=== PATIENT | female | born 1960 | race Caucasian/White ===

== ENCOUNTER → 2018-11-22 | Outpatient (CLI) | payer OTHER ==
--- NOTE | 2018-11-22 12:15 | RAD ---
EXAM: Pelvic sonogram. HISTORY: Postmenopausal bleeding. TECHNIQUE: Transabdominal and transvaginal sonographic imaging of the pelvis performed. COMPARISON: None. FINDINGS: The uterus measures 9.5 x 4.9 x 4.8 cm. The endometrial stripe measures 17 mm in thickness. The ovaries are not seen. There is no adnexal mass or free fluid. There are multiple nabothian cysts within the cervix. IMPRESSION: 1. Nonvisualization of the ovaries. 2. Thickened endometrial stripe for the reported postmenopausal status the patient. Electronically signed by: Ronit Carson MD (11/22/2018 12:12 PM) [place] [id number]
== END | disposition home or self-care (01) ==
LOC: US 11:08
PROVIDERS: ATTEND Family Medicine
DX: N88.8 Other specified noninflammatory disorders of cervix uteri (principal); N95.0 Postmenopausal bleeding
CPT/HCPCS: 76830; 76856